=== PATIENT | male | born 1980 | race Caucasian/White ===

== ENCOUNTER 2020-05-14 23:52 | Emergency (ER) | payer BC, SELFPAY ==
[2020-05-14 23:59] VITALS: BP 125/83; PULSE 102; RESP 18; O2SAT 95
--- NOTE | 2020-05-15 00:19 | ED.GENADULT ---
HPI - General Adult General Chief complaint: Shortness of Breath/Dyspnea Stated complaint: covid + , sob Time Seen by Provider: 05/15/20 00:06 Source: patient Mode of arrival: ambulatory Limitations: no limitations History of Present Illness HPI narrative: A 40-year-old male presents to the emergency department with complaints of shortness of breath. Patient states he was diagnosed with Covid on of last week. He states that his symptoms began to progress today and that he went to a local urgent care center. He was treated there and sent home with multiple prescriptions which he states that he has taken. Patient was just at urgent care center couple of hours ago and states that he has already had the first doses of all of the medications. He stated that he felt he was not getting any better and needed to come into the emergency department after just a couple of hours of treatment. Related Data Allergies Allergy/AdvReac Type Severity Reaction Status Date / Time No Known Allergies Allergy Unverified 05/15/18 12:13 Review of Systems Review of Systems: Narrative: CONSTITUTIONAL: Denies fever, chills, or sweats. EYES: Denies visual changes, redness, or discharge. ENT: Denies rhinorrhea, congestion, sore throat, or otalgia. CARDIOVASCULAR: Denies chest pain, palpitations, or edema. RESPIRATORY: Complains of dyspnea. GASTROINTESTINAL: Denies abdominal pain, nausea, vomiting, or diarrhea. GENITOURINARY: Denies dysuria or hematuria. SKIN: Denies rash or itching. MUSCULOSKELETAL: Denies back pain, joint pain, or myalgia. NEUROLOGIC: Denies headache, numbness, dizziness, or weakness. PSYCHIATRIC: Denies anxiety or depression. FOR[facility]LY [facility], [facility] Social History Social History Gender identity (if verbalized by the patient): Male Exam Narrative: Exam Narrative: GENERAL: Well-appearing, well-nourished, and in no acute distress. HEAD: Normocephalic, atraumatic. EYES: PERRLA and EOMI. ENT: Nares clear, no rhinorrhea or epistaxis. Mucous membranes moist. Oropharynx without tonsillar hypertrophy exudate or other lesions. Bilateral TMs pearly little nonbulging NECK: Supple. No adenopathy or masses. No carotid bruits or JVD CHEST: Clear to auscultation. No respiratory distress. No wheezes rales or rhonchi HEART: Regular rate and rhythm. No murmur heard. Normal peripheral pulses. ABDOMEN: Soft, nontender, nondistended, normal active bowel sounds. EXTREMITIES: Normal range of motion. No edema. SKIN: Warm, dry, no rash. NEURO: No focal deficits. Alert and oriented x3. PSYCH: Normal mood and affect. Course Vital Signs Vital signs: Vital Signs Pulse Rate 102 H 05/14/20 23:59 Respiratory Rate 18 05/14/20 23:59 Blood Pressure 125/83 05/14/20 23:59 Pulse Oximetry 95 05/14/20 23:59 Pulse Rate 102 H 05/14/20 23:59 Respiratory Rate 18 05/14/20 23:59 Blood Pressure 125/83 05/14/20 23:59 Pulse Oximetry 95 05/14/20 23:59 Medical Decision Making MDM Narrative Medical decision making narrative: In brief this is a 40-year-old male who presented to the emergency department [facility] with complaints of needing further care for COVID-19. I did discuss at length the patient's symptoms. He was 97% and above on room air. His vital signs were otherwise reassuring. I reviewed all the medications that the urgent care prescribed for him. I do feel that these are appropriate. I explained to the patient that at this time I do not really feel I have much more to offer and that the treatment he is receiving from urgent care was appropriate. Patient was encouraged to go home rest and return to the ED should his symptoms worsen. Vital Signs Vital Signs: Vital Signs Pulse Rate 102 H 05/14/20 23:59 Respiratory Rate 18 05/14/20 23:59 Blood Pressure 125/83 05/14/20 23:59 Pulse Oximetry 95 05/14/20 23:59 Pulse Rate 102 H 05/14/20 23:59 Respiratory Rate 18
== END 2020-05-15 00:33 | disposition home or self-care (01) ==
PROVIDERS: Emergency Provider Emergency Medicine
DX: U07.1 COVID-19 (principal)
CPT/HCPCS: 99281